=== PATIENT | female | born 1965 | race Caucasian/White ===

== ENCOUNTER 2021-10-03 12:12 | Outpatient (CLI) | payer BC | END 2021-10-03 12:13 | disposition home or self-care (01) | LOC: CSHULT 12:12 | PROVIDERS: ATTEND Internal Medicine Nephrology | DX: I12.9 Hypertensive chronic kidney disease with stage 1 through stage 4 chronic kidney disease, or unspecified chronic kidney disease (principal); F17.200 Nicotine dependence, unspecified, uncomplicated; R93.421 Abnormal radiologic findings on diagnostic imaging of right kidney | CPT/HCPCS: 76770 ==